=== PATIENT | female | born 1990 | race Hispanic/Latino ===

== ENCOUNTER 2019-07-13 12:36 | Inpatient (IN) | payer BC ==
[~2019-07-13] VITALS: Ht 152.4 cm; Wt 91.6 kg
[2019-07-15 13:48] LABS: HEMATOCRIT 36.7 % (36-48); MEAN CORPUSCULAR HEMOGLOBIN 32.7 pg (27.0-33.0); MEAN CORPUSCULAR HGB CONC 33.5 g/dL (32.0-36.0); MEAN CORPUSCULAR VOLUME 97.6 fL (79-99); PLATELET COUNT (AUTO) 212 K/uL (130-400); RED BLOOD CELL COUNT(AUTO) 3.76 MIL/uL (4.00-5.50); RED CELL DISTRIBUTION WIDTH 13.1 % (11.0-15.5); WHITE BLOOD COUNT (AUTO) 9.4 K/uL (4.8-10.8)
[2019-07-15 13:51] LABS: APPEARANCE,URINE Cloudy (CLEAR); BILIRUBIN,URINE Negative (NEGATIVE); COLOR,URINE Yellow (YELLOW); GLUCOSE, URINE (UA) Negative (NEGATIVE); KETONES,URINE Negative (NEGATIVE); LEUKOCYTE ESTERASE ,URINE Negative (NEGATIVE); NITRATE,URINE Negative (NEGATIVE); OCCULT BLOOD,URINE Negative (NEGATIVE); PROTEIN,URINE Trace mg/dL (NEGATIVE)
[2019-07-15] MEDS: LACTATED RINGERS 1000ML 1,000 ML IV PRN ×3 (13:55→22:28)
[2019-07-15 14:21] LABS: BACTERIA,URINE Rare /HPF (None Seen); RBC,URINE 0-1 /HPF (0-1); SQUAMOUS EPITHELIAL CELL,UR Few /HPF (0-2); WBC,URINE 0-1 /HPF (0-1)
[2019-07-15 19:36] VITALS: BP 111/55
[2019-07-15] MEDS ORDERED: PROMETHAZINE HCL 25 MG/ML 1ML AMPULE IM PRN (20:45)
[2019-07-15] MEDS ORDERED: MEPERIDINE-PF 50 MG/ML SYG IVP PRN (20:45)
[2019-07-15] MEDS ORDERED: ALBU0.63 IH (21:46)
[2019-07-15] MEDS ORDERED: PREN1TAB80 PO (21:46)
[2019-07-16] MEDS ORDERED: OXYTOCIN-LR 20 UNITS/1000 ML 1,000 ML IV ONE (02:35)
[2019-07-16] MEDS: OXYTOCIN 10 USP UNITS/ML 20 UNIT in LACTATED RINGERS 1000ML 1,000 ML IV SCH (03:02)
[2019-07-16] MEDS: LACTATED RINGERS 1000ML 1,000 ML IV PRN (06:43)
[2019-07-16 07:10] LABS: HEPATITIS Bs ANTIGEN SCREEN P Negative (Negative)
[2019-07-17] MEDS ORDERED: OXYTOCIN-LR 20 UNITS/1000 ML 1,000 ML IV ONE (02:30)
[2019-07-17] MEDS: LACTATED RINGERS 1000ML 1,000 ML IV PRN ×2 (02:47→23:15)
[2019-07-17] MEDS ORDERED: DINOPROSTONE 10 MG VAGINAL SUPP EC SCH (17:00)
[2019-07-18] MEDS ORDERED: OXYTOCIN-LR 20 UNITS/1000 ML 1,000 ML IV ONE (07:44)
[2019-07-18] MEDS: LACTATED RINGERS 1000ML 1,000 ML IV PRN ×3 (07:50→20:56)
[2019-07-18] MEDS: OXYTOCIN 10 USP UNITS/ML 20 UNIT in LACTATED RINGERS 1000ML 1,000 ML IV SCH (07:50)
[2019-07-19] MEDS ORDERED: OXYTOCIN-LR 20 UNITS/1000 ML 1,000 ML IV ONE ×2 (04:59→15:45)
[2019-07-19] MEDS ORDERED: CEFAZOLIN SODIUM 1 GM VIAL ONE (15:43)
[2019-07-19] MEDS ORDERED: OXYTOCIN 10 USP UNITS/ML ONE (15:44)
[2019-07-19] MEDS ORDERED: CARBOPROST TROMETHAMINE 250 MCG/ML AMP IM ONE (15:45)
[2019-07-19] MEDS ORDERED: CEFAZOLIN SODIUM 1 GM VIAL IVP PRN (15:45)
[2019-07-19] MEDS ORDERED: CITRIC ACID/SODIUM CITRATE 30 ML UDCUP PO PRN (15:45)
[2019-07-19] MEDS ORDERED: LACTATED RINGERS 1000ML 1,000 ML IV SCH (15:45)
[2019-07-19] MEDS ORDERED: METHYLERGONOVINE MALEATE 0.2 MG/1 ML ML ONE (15:45)
[2019-07-19] MEDS ORDERED: DURAMORPH PF1 MG/ML 10ML AMP IV ONE (16:30)
[2019-07-19] MEDS ORDERED: FENTANYL CITRATE PF 50 MCG/1 ML 2ML VIAL ONE (16:31)
[2019-07-19] MEDS ORDERED: CALDOLOR 800MG+NS 250ML 250 ML IV ONE (16:33)
[2019-07-19] MEDS ORDERED: CEFAZOLIN SODIUM 1 GM VIAL IVP ONE (16:50)
[2019-07-19] MEDS ORDERED: PHENYLEPHRINE HCL 10 MG/ML 1ML VIAL IV ONE (17:44)
[2019-07-19] MEDS ORDERED: METOCLOPRAMIDE 10 MG/2 ML VIAL ONE (17:44)
[2019-07-19] MEDS ORDERED: ACETAMINOPHEN-CODEINE 300/30MG TAB PO PRN (18:00)
[2019-07-19] MEDS ORDERED: MEPERIDINE-PF 75 MG/ML SYG IM PRN (18:00)
[2019-07-19] MEDS ORDERED: IBUPROFEN 600 MG TABLET PO PRN (18:00)
[2019-07-19] MEDS ORDERED: HYDROCODONE/ACETAMINOPHEN 5/325 MG TAB PO PRN (18:00)
[2019-07-19] MEDS ORDERED: DEXTROSE 5 %-0.45 % NACL 1,000 ML IV PRN (18:00)
[2019-07-19] MEDS ORDERED: SODIUM CHLORIDE 0.9% 10 ML VIAL IVP PRN (18:00)
[2019-07-19] MEDS ORDERED: DIPH,PERTUSS(ACELL),TET VAC/PF 0.5 ML VIAL IM SCH (18:00)
[2019-07-19] MEDS ORDERED: LANOLIN 30GM OINTMENT TP PRN (18:00)
[2019-07-19] MEDS ORDERED: MEASLES/MUMPS/RUBELLA VACCINE, LIVE 0.5 ML/VIAL SQ SCH (18:00)
[2019-07-19] MEDS ORDERED: OXYTOCIN-LR 20 UNITS/1000 ML 1,000 ML IV PRN (18:00)
[2019-07-19] MEDS ORDERED: PROMETHAZINE HCL 25 MG/ML 1ML AMPULE IM PRN (18:00)
[2019-07-19] MEDS ORDERED: BISACODYL 10 MG SUPP.RECT RC PRN (18:00)
[2019-07-19] MEDS ORDERED: EPHEDRINE SULFATE 50 MG/ML AMPULE ONE (18:17)
[2019-07-19] MEDS ORDERED: EPHEDRINE SULFATE 50 MG/ML AMPULE IVP PRN (20:00)
[2019-07-19] MEDS ORDERED: DiphenhydrAMINE HCL 50 MG/ML VIAL IVP PRN (20:00)
[2019-07-19] MEDS ORDERED: MEPERIDINE HCL/PF 25 MG/0.5 ML AMPUL IV PRN (20:00)
[2019-07-19] MEDS ORDERED: NALOXONE HCL 0.4 MG/1 ML ML IVP PRN ×3 (20:00)
[2019-07-19] MEDS: ONDANSETRON HCL 4 MG/2 ML VIAL IVP PRN (20:15)
[2019-07-19 20:32] VITALS: BP 118/69
[2019-07-19] MEDS: DOCUSATE SODIUM 100 MG CAP PO SCH (21:00)
[2019-07-19] MEDS: CEFAZOLIN SODIUM 1 GM VIAL IVP SCH (22:00)
[2019-07-19 23:50] VITALS: BP 105/59
[2019-07-20] MEDS: CEFAZOLIN SODIUM 1 GM VIAL IVP SCH ×3 (01:08→22:00)
[2019-07-20] MEDS: CALDOLOR 800MG+NS 250ML 250 ML IV SCH ×2 (03:16→10:29)
[2019-07-20 03:55] VITALS: BP 99/47
--- NOTE | 2019-07-20 06:00 | NUR ---
HUIZAR CATHETER D/C HUIZAR CATHETER DISCONTINUED. OSVALDO CARE PROVIDED. PATIENT TOLERATED WELL. PATIENT ASSISTED TO LAY ON L. LATERAL POSITION. PATIENT INSTRUCTED TO CALL FOR ASSISTANCE WHEN NEEDING TO VOID. CALL ANN PLACED WITHIN REACH.
[2019-07-20 07:04] LABS: MEAN CORPUSCULAR HEMOGLOBIN 32.3 pg (27.0-33.0); MEAN CORPUSCULAR HGB CONC 32.9 g/dL (32.0-36.0); MEAN CORPUSCULAR VOLUME 98.2 fL (79-99); PLATELET COUNT (AUTO) 146 K/uL (130-400); RED BLOOD CELL COUNT(AUTO) 2.85 MIL/uL (4.00-5.50); RED CELL DISTRIBUTION WIDTH 12.8 % (11.0-15.5); WHITE BLOOD COUNT (AUTO) 9.1 K/uL (4.8-10.8)
[2019-07-20 08:00] VITALS: BP 97/55
--- NOTE | 2019-07-20 08:05 | NUR ---
PATIENT ASSESSED AND INCISION IS OPEN TO AIR WITH DERMABOND. PIV IS TO RIGHT HAND AND SALINE LOCK TO LEFT FOREARM. PATIENT INSTRUCTED ON PLAN OF CARE AND NEED TO DRINK FLUIDS TO BE ABLE TO VOID BY 1200NOON. VERBALIZED UNDERSTANDING. MEDICATED PATIENT WITH NORCO TO BE ABLE TO GET UP TO CHAIR.
[2019-07-20] MEDS: DOCUSATE SODIUM 100 MG CAP PO SCH ×2 (08:15→20:58)
[2019-07-20] MEDS: SIMETHICONE 80 MG TAB.CHEW PO PRN ×4 (08:15→20:58)
--- NOTE | 2019-07-20 09:10 | NUR ---
BEDSIDE REPORT GIVEN TO MICHELLE PALUMBO AND PATIENT CARE TRANSFERED AT THIS TIME.
--- NOTE | 2019-07-20 10:00 | NUR ---
ASSISTED TO BATHROOM AND WAS NOT ABLE TO VOID.
[2019-07-20] MEDS: ONDANSETRON HCL 4 MG/2 ML VIAL IVP PRN (10:29)
[2019-07-20 12:00] VITALS: BP 93/57
--- NOTE | 2019-07-20 12:30 | NUR ---
UP TO BATHROOM AND WAS ABLE TO VOID 300CC OF BLOOD TINGED URINE.
--- NOTE | 2019-07-20 13:45 | NUR ---
PATIENT AMBULATED IN HALLWAY AND TOLERATED ACTIVITY WELL.
--- NOTE | 2019-07-20 15:00 | NUR ---
IV CONVERTED TO SALINE LOCK AND PATIENT HAS VOIDED 500CC OF BLOOD TINGED URINE. AGAIN ENCOURAGED PATIENT TO AMBULATE IN HALLWAY.
[2019-07-20 16:00] VITALS: BP 98/74
[2019-07-20] MEDS: IBUPROFEN 800 MG TAB PO SCH (18:45)
[2019-07-20 19:38] VITALS: BP 105/57
[2019-07-21 00:11] VITALS: BP 103/58
[2019-07-21] MEDS: IBUPROFEN 800 MG TAB PO SCH ×2 (02:05→08:49)
[2019-07-21 03:20] VITALS: BP 95/51
[2019-07-21] MEDS: CEFAZOLIN SODIUM 1 GM VIAL IVP SCH (06:00)
[2019-07-21 07:23] VITALS: BP 102/59
[2019-07-21] MEDS: DOCUSATE SODIUM 100 MG CAP PO SCH (08:49)
[2019-07-21] MEDS: SIMETHICONE 80 MG TAB.CHEW PO PRN (08:49)
--- NOTE | 2019-07-21 09:50 | NUR ---
DR. TRAN ROUNDED AND DISCHARGED PATIENT TO HOME. PT TO FOLLOW UP WITH DR. MUNGUIA IN ONE WEEK.
[2019-07-21 11:27] VITALS: BP 99/64
--- NOTE | 2019-07-21 11:40 | NUR ---
DISCHARGE INSTRUCTIONS GIVEN AND PATIENT VERBALIZED UNDERSTANDING INSTRUCTIONS GIVEN. DENIES PAIN. REINFORCED INCISIONAL CARE AND SIGNS AND SYMPTOMS TO REPORT TO ER. SCRIPT FOR PAIN MANAGEMENT REVIEWED AND DOSAGE AND FREQUENCIES GIVEN.
--- NOTE | 2019-07-21 12:15 | NUR ---
PATIENT WAS TAKEN VIA W/C CARRYING BABY IN ARMS TO FAMILY VEHICLE AND WAS DISCHARGED TO HER SPOUSE IN STABLE CONDITION. DENIES PAIN AT THIS TIME.
== END 2019-07-21 12:15 | disposition home or self-care (01) | DRG 788 ==
LOC: PREOBSVTOIN 12:36 → LDH 07-15 12:45 → WSH 07-19 20:29
PROC: 3E0234Z Introduction of Serum, Toxoid and Vaccine into Muscle, Percutaneous Approach (ICD-10-PCS; 2019-07-19)
PROC: 3E0134Z Introduction of Serum, Toxoid and Vaccine into Subcutaneous Tissue, Percutaneous Approach (ICD-10-PCS; 2019-07-19)
PROC: 10D00Z1 Extraction of Products of Conception, Low, Open Approach (ICD-10-PCS; principal; 2019-07-19 16:40)
DX: O41.03X0 Oligohydramnios, third trimester, not applicable or unspecified (principal); O61.9 Failed induction of labor, unspecified; Z3A.40 40 weeks gestation of pregnancy; Z37.0 Single live birth; Z23 Encounter for immunization
CPT/HCPCS: 36415; 59510; 81001; 85027; 86592; 86850; 86900; 86901; 87340; 90707; 90715; A4344; G0378; J0690; J1741; J2175; J2210; J2274; J2370; J2405; J2550; J2590; J2765; J3010; J3490; J7120